=== PATIENT | male | born 2000 | race American Indian/Alaskan Native ===

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

== ENCOUNTER 2019-08-15 21:47 | Emergency (ER) | payer SELFPAY ==
[2019-08-15 21:54] VITALS: BP 138/77
--- NOTE | 2019-08-15 23:37 | XRay Report ---
CHEST 2 VIEWS INDICATION / CLINICAL INFORMATION: Chest pain for 3 days. COMPARISON: 02/12/17. FINDINGS: SUPPORT DEVICES: None. HEART / MEDIASTINUM: The heart size and pulmonary vasculature are normal. The aorta is normal in torrie yolanda. LUNGS / PLEURA: No significant pulmonary or pleural abnormality. No pneumothorax. ADDITIONAL FINDINGS: No significant additional findings. IMPRESSION: No acute abnormality or significant change. Signer Name: Dick Ortiz MD Signed: 08/15/2019 11:33 PM Workstation Name: [id number]
[2019-08-16] MEDS ORDERED: IPRATROPIUM/ALBUTEROL SULFATE 3 ML AMPUL.NEB IH ONE (02:17)
--- NOTE | 2019-08-16 02:24 | Emergency Department Report ---
HPI - General Chief Complaint: Chest Pain Time Seen by Provider: 08/16/19 02:16 - HPI HPI: This is a 18-year-old -[place] male presents to the emergency department with complaint of a 3-day history of some midsternal chest pain. He says that it worsens when he is trying to sleep at night. He denies any fever, cough, nausea, vomiting or diaphoresis. He denies any tobacco or illicit drug use. He has a past medical history of asthma. He has not taken anything for symptoms prior to presentation. No recent travel or sick contacts at home. No known exposure to anyone with Covid 19. ED Past Medical Hx - Past Medical History Previous Medical History?: Yes Hx Asthma: Yes Additional medical history: Back Pain - Surgical History Past Surgical History?: Yes Additional Surgical History: TONSILLECTOMY - Social History Smoking Status: Never Smoker Substance Use Type: None - Medications Home Medications: Home Medications Medication Instructions Recorded Confirmed Last Taken Type Naproxen [Naprosyn] 500 mg PO BID PRN #14 tablet 02/12/17 Unknown Rx Albuterol Mdi (or & Nicu Only) 2 puff IH QID PRN #8.5 gram 08/16/19 Unknown Rx [ProAir HFA Inhaler] ED Review of Systems ROS: Stated complaint: CHEST PAIN/HEADACHE Other details as noted in HPI Comment: All other systems reviewed and negative Constitutional: denies: chills, fever Eyes: denies: eye pain, vision change Respiratory: denies: cough, shortness of breath Cardiovascular: chest pain. denies: palpitations Gastrointestinal: denies: abdominal pain, vomiting Genitourinary: denies: dysuria Musculoskeletal: denies: back pain, arthralgia Neurological: denies: weakness, numbness Physical Exam - Physical Exam Vital Signs: Vital Signs 08/15/19 21:53 Temperature 98.9 F Pulse Rate 90 Respiratory 22 Rate Blood Pressure 138/77 O2 Sat by Pulse 97 Oximetry Physical Exam: GENERAL: The patient is well-developed well-nourished. HENT: Normocephalic. Atraumatic. Patient has moist mucous membranes. EYES: Extraocular motions are intact. NECK: Supple. Trachea is midline. CHEST/LUNGS: Clear to auscultation. There is no respiratory distress noted. HEART/CARDIOVASCULAR: Regular. There is no tachycardia. There is no murmur. ABDOMEN: Abdomen is soft, nontender. Patient has normal bowel sounds. SKIN: Skin is warm and dry. NEURO: The patient is awake, alert, and oriented. The patient is cooperative. Normal speech. MUSCULOSKELETAL: There is no tenderness or deformity. There is no evidence of acute injury. ED Course Vital Signs 08/15/19 21:53 Temperature 98.9 F Pulse Rate 90 Respiratory 22 Rate Blood Pressure 138/77 O2 Sat by Pulse 97 Oximetry ED Medical Decision Making - EKG Data -: EKG Interpreted by Me EKG shows normal: sinus rhythm, axis, intervals, QRS complexes, ST-T waves Rate: normal - EKG Data When compared to previous EKG there are: previous EKG unavailable Interpretation: normal EKG - Radiology Data Radiology results: image reviewed interpreted by me: Chest x-ray does not show any acute process. There are no pleural effusions, obvious pneumonia and there is no pneumothorax. - Medical Decision Making This patient presents to the emergency department with a complaint of some generalized chest tightness. On examination his heart and lung sounds are normal to auscultation. The patient does not appear in any respiratory or acute distress. An EKG was done that does not show any signs of ST elevation ME or dysrhythmia. Chest x-ray does not show any pneumonia, pleural effusions, pneumothorax, or any other acute process. Patient was given a breathing treatment and upon reevaluation says he is feeling improved. He will be discharged home with an albuterol inhaler and instructions to follow-up with primary care. Patient does not have any significant risk factors for coronary artery disease. He is also low on the Wells score criteria. Vital signs stable throughout his ED course including being afebrile. Critical Care Time: No Critical care attestation.: If time is entered above; I have spent that time in minutes in the direct care of this critically ill patient, excluding procedure time. ED Disposition Clinical Impression: Chest tightness Disposition: DC-01 TO HOME OR SELFCARE Is pt being admited?: No Condition: Stable Instructions: Chest Pain (ED) Additional Instructions: Please follow-up with a primary care physician in the next few days. Return to the emergency department with any worsening of your symptoms or any acute distress. Prescriptions: Albuterol Mdi (or & Nicu Only) [ProAir HFA Inhaler] 2 puff IH QID PRN #8.5 gram PRN Reason: Shortness Of Breath Referrals: PRIMARY CAREMD [Primary Care Provider] - 3-5 Days NEWTON MONTES MD [Staff Physician] - 3-5 Days [facility] [Provider Group] - 3-5 Days Forms: Work/School Release Form(ED) Time of Disposition: 02:48
== END 2019-08-16 02:50 | disposition home or self-care (01) ==
LOC: ED 21:47
DX: R07.89 Other chest pain (principal); J45.909 Unspecified asthma, uncomplicated
CPT/HCPCS: 71046; 93005; 99283

== ENCOUNTER 2019-11-21 16:21 | Emergency (ER) | payer MEDICAID ==
[2019-11-21 17:19] VITALS: BP 128/68
== END 2019-11-21 20:30 | disposition left against medical advice (07) ==
LOC: ED 16:21
DX: J34.89 Other specified disorders of nose and nasal sinuses (principal); R20.8 Other disturbances of skin sensation; Z53.21 Procedure and treatment not carried out due to patient leaving prior to being seen by health care provider

== ENCOUNTER 2021-03-11 20:23 | Emergency (ER) | payer MEDICAID, OTHER ==
[2021-03-11 20:47] VITALS: BP 142/86
--- NOTE | 2021-03-11 23:14 | Cat Scan Report ---
CT head/brain wo con INDICATION / CLINICAL INFORMATION: seizure. TECHNIQUE: Axial CT imaging of the brain was obtained without contrast. Coronal and sagittal reformatted imaging obtained and reviewed. All CT scans at this location are performed using CT dose reduction for ALAR A by means of automated exposure control. COMPARISON: None available. FINDINGS: No intracranial hemorrhage, mass, or midline shift noted. No extra-axial fluid collection or suggesti on of acute territorial infarction. The ventricular system and basilar cisterns are unremarkable. Visualized paranasal sinuses demonstrate a small mucous retention cyst in the left maxillary sinus. O therwise the sinuses are clear. Mastoid air cells are well aerated and clear. No calvarial abnormalit y. IMPRESSION: 1. No acute intracranial abnormality. 2. Incidental finding of small left maxillary antral mucous retention cyst. Signer Name: Gillian Whitney MD Signed: 03/11/2021 11:10 PM Workstation Name: [id number]
[2021-03-12] MEDS ORDERED: levETIRAcetam 500 MG TAB PO ONE (00:15)
[2021-03-12 00:51] LABS: Basophils # (Auto) 0.1 K/mm3 (0.0-0.1); Basophils % (Auto) 0.9 % (0.0-1.8); Eosinophils # (Auto) 0.2 K/mm3 (0.0-0.4); Eosinophils % (Auto) 2.2 % (0.0-4.3); Hematocrit 41.6 % (35.5-45.6); Lymphocytes # (Auto) 3.6 K/mm3 (1.2-5.4); Lymphocytes % (Auto) 45.3 % (13.4-35.0); Mean Corpuscular HGB Conc 31 % (32-34); Mean Corpuscular Volume 75 fl (84-94); Monocytes # (Auto) 0.4 K/mm3 (0.0-0.8); Monocytes % (Auto) 5.1 % (0.0-7.3); Platelet Count 262 K/mm3 (140-440); Red Blood Count 5.56 M/mm3 (3.65-5.03); Red Cell Distribution Width 14.9 % (13.2-15.2)
[2021-03-12 01:00] LABS: Alanine Aminotransferase 42 units/L (7-56); Albumin 4.5 g/dL (3.9-5); BUN/Creatinine Ratio 14; Blood Urea Nitrogen 13 mg/dL (9-20); Calcium 9.2 mg/dL (8.4-10.2); Hemolysis Index 20
--- NOTE | 2021-03-12 01:19 | Emergency Department Report ---
ED Seizure HPI - General Chief Complaint: Seizure Stated Complaint: PASSING OUT Source: patient Mode of arrival: Ambulatory Limitations: No Limitations - History of Present Illness Initial Comments: Patient is a 20-year-old -Turkish male with a history of asthma and chronic seizures and who is not on medication presents to the ED with complaint of intermittent seizures for the last 1 week, last time of which was 6 hours ago. Patient states that he has had seizures for "a long time" and that he has never taken any medications. Patient stated that he relocated from [facility] to [facility] about 4 months ago, and at the time he relocated he was scheduled to see a neurologist but could not follow-up with a local neurologist at the time in [place] because of his location. Patient states that since then he has been having intermittent seizures and he has never come to the hospital for evaluation. Patient denies dizziness, syncope, head or neck injuries, chest pain or shortness of breath, fever, chills, nausea and vomiting, syncope or abdominal pain, urinary or bowel incontinence. MD Complaint: seizure -: Sudden, week(s) (1) Description of Episode: loss of consciousness, tonic-clonic movement, post-event confusion Witnessed:: Yes Trauma: No Seizure History: known seizure disorder Place: home Possible Precipitating Event: none Associated Symptoms: denies other symptoms. denies: chest pain, confusion, cough, diaphoresis, fever/chills, loss of appetite, malaise, rash, syncope, weakness Treatments Prior to Arrival: none - Related Data Previous Rx's Medication Instructions Recorded Last Taken Type Naproxen [Naprosyn] 500 mg PO BID PRN #14 tablet 02/12/17 Unknown Rx Albuterol Mdi (or & Nicu Only) 2 puff IH QID PRN #8.5 gram 08/16/19 Unknown Rx [ProAir HFA Inhaler] levETIRAcetam [Keppra TAB] 1,000 mg PO BID #60 tab 03/12/21 Unknown Rx Allergies Allergy/AdvReac Type Severity Reaction Status Date / Time No Known Allergies Allergy Verified 02/12/17 11:12 ED Review of Systems ROS: Stated complaint: PASSING OUT Other details as noted in HPI Constitutional: denies: chills, fever Eyes: denies: eye pain, eye discharge, vision change ENT: denies: ear pain, throat pain Respiratory: denies: cough, shortness of breath, wheezing Cardiovascular: denies: chest pain, palpitations Endocrine: no symptoms reported Gastrointestinal: denies: abdominal pain, nausea, vomiting, diarrhea Genitourinary: denies: urgency, dysuria Musculoskeletal: denies: back pain, joint swelling, arthralgia Skin: denies: rash, lesions Neurological: other (Seizures). denies: headache, weakness, paresthesias Psychiatric: denies: anxiety, depression Hematological/Lymphatic: denies: easy bleeding, easy bruising ED Past Medical Hx - Past Medical History Previous Medical History?: Yes Hx Asthma: Yes Additional medical history: Back Pain - Surgical History Past Surgical History?: Yes Additional Surgical History: TONSILLECTOMY - Social History Smoking Status: Never Smoker - Medications Home Medications: Home Medications Medication Instructions Recorded Confirmed Last Taken Type Naproxen [Naprosyn] 500 mg PO BID PRN #14 tablet 02/12/17 Unknown Rx Albuterol Mdi (or & Nicu Only) 2 puff IH QID PRN #8.5 gram 08/16/19 Unknown Rx [ProAir HFA Inhaler] levETIRAcetam [Keppra TAB] 1,000 mg PO BID #60 tab 03/12/21 Unknown Rx ED Physical Exam - General Limitations: No Limitations General appearance: alert, in no apparent distress - Head Head exam: Present: atraumatic, normocephalic, normal inspection - Eye Eye exam: Present: normal appearance, PERRL, EOMI Pupils: Present: normal accommodation - ENT ENT exam: Present: normal exam, normal orophraynx, mucous membranes moist, TM's normal bilaterally, normal external ear exam - Neck Neck exam: Present: normal inspection, full ROM - Respiratory Respiratory exam: Present: normal lung sounds bilaterally. Absent: respiratory distress, wheezes, rales, rhonchi, chest wall tenderness, accessory muscle use, decreased breath sounds, prolonged expiratory - Cardiovascular Cardiovascular Exam: Present: regular rate, normal rhythm, normal heart sounds. Absent: systolic murmur, diastolic murmur, rubs, gallop - GI/Abdominal GI/Abdominal exam: Present: soft, normal bowel sounds. Absent: tenderness, guarding, rebound, hyperactive bowel sounds, organomegaly, mass - Extremities Exam Extremities exam: Present: normal inspection, full ROM, normal capillary refill - Back Exam Back exam: Present: normal inspection, full ROM. Absent: tenderness, CVA tenderness (R), CVA tenderness (L), muscle spasm, vertebral tenderness - Neurological Exam Neurological exam: Present: alert, oriented X3, CN II-XII intact, normal gait, reflexes normal - Psychiatric Psychiatric exam: Present: normal affect, normal mood - Skin Skin exam: Present: warm, dry, intact, normal color. Absent: rash ED Course Vital Signs 03/11/21 20:43 Temperature 97.8 F Pulse Rate 94 H Respiratory 18 Rate Blood Pressure 142/86 O2 Sat by Pulse 98 Oximetry ED Medical Decision Making - Lab Data Result diagrams: 03/12/21 00:23 03/12/21 00:23 - Radiology Data [facility] [address] [place] [address] Cat Scan Report Signed Patient: DOROTHY PRADHAN JR MR#: [id number] : 2000 Acct:[id number] Age/Sex: 20 / M ADM Date: 03/11/21 Loc: ED Attending Dr: Ordering Physician: PINA DUMONT MD Date of Service: 03/11/21 Procedure(s): CT head/brain wo con Accession Number(s): [id number] cc: PINA DUMONT MD CT head/brain wo con INDICATION / CLINICAL INFORMATION: seizure. TECHNIQUE: Axial CT imaging of the brain was obtained without contrast. Coronal and sagittal reformatted imaging obtained and reviewed. All CT scans at this location are performed using CT dose reduction for ALARA by means of automated exposure control. COMPARISON: None available. FINDINGS: No intracranial hemorrhage, mass, or midline shift noted. No extra-axial fluid collection or suggestion of acute territorial infarction. The ventricular system and basilar cisterns are unremarkable. Visualized paranasal sinuses demonstrate a small mucous retention cyst in the left maxillary sinus. Otherwise the sinuses are clear. Mastoid air cells are well aerated and clear. No calvarial abnormality. IMPRESSION: 1. No acute intracranial abnormality. 2. Incidental finding of small left maxillary antral mucous retention cyst. Signer Name: Gillian Whitney MD Signed: 03/11/2021 11:10 PM Workstation Name: [id number] Transcribed By: Dictated By: Gillian Whitney MD Electronically Authenticated By: Gillian Whitney MD Signed Date/Time: 03/11/212309 DD/ 06 TD/TT: Print - Medical Decision Making This is a 20-year-old -Turkish male with a history of asthma and chronic seizures and who is not on medication presents to the ED with complaint of intermittent seizures for the last 1 week, last time of which was 6 hours ago. Patient states that he has had seizures for "a long time" and that he has never taken any medications. Patient stated that he relocated from [facility] to [facility] about 4 months ago, and at the time he relocated he was scheduled to see a neurologist but could not follow-up with a local neurologist at the time in [place] because of his location. Patient states that since then he has been having intermittent seizures and he has never come to the hospital for evaluation. In the ED, patient is alert and oriented x3 and is not in any distress. Lab test results were reviewed and are all nonactionable. Head CT scan without contrast showed no acute intracranial abnormalities or hemorrhage. Patient was treated in the ED for seizures with Keppra 1 g p.o. x1. On reevaluation, patient has not had any seizures while in the ED. Patient will discharge home on medications, Keppra 1 g twice a day and was given a referral to a neurologist Dr. Mathew Coley for follow-up. Patient was advised to contact Dr. Feliciano's office in the next 3 to 5 days for follow-up and for further evaluation. Patient was otherwise advised return to the ED immediately if symptoms get worse. - Differential Diagnosis seizure; syncope; dehydration Critical care attestation.: If time is entered above; I have spent that time in minutes in the direct care of this critically ill patient, excluding procedure time. ED Disposition Clinical Impression: Seizure disorder Disposition: 01 HOME / SELF CARE / HOMELESS Is pt being admited?: No Does the pt Need Aspirin: No Condition: Stable Instructions: Seizure, Adult, [id number], Epilepsy, [id number] Additional Instructions: All lab test results were reviewed and are all nonactionable. Head CT scan without contrast showed no acute intracranial abnormalities or hemorrhage. Therefore take medications for seizures as advised, follow-up with a neurologist Dr. Feliciano as advised. Contact his office in the next 2 to 3 days to schedule a follow-up appointment. Return to the ED immediately if symptoms get worse. Prescriptions: levETIRAcetam [Keppra TAB] 1,000 mg PO BID #60 tab Referrals: CARLO FELICIANO MD [Staff Physician] - 3-5 Days [facility] [Provider Group] - 7-10 days Time of Disposition: 01:19 Print Language: CHILEAN
== END 2021-03-12 01:45 | disposition home or self-care (01) ==
LOC: ED 20:23
DX: G40.909 Epilepsy, unspecified, not intractable, without status epilepticus (principal); J45.909 Unspecified asthma, uncomplicated
CPT/HCPCS: 36415; 70450; 80053; 84443; 85025; 99284

== ENCOUNTER 2021-10-06 08:41 | Emergency (ER) | payer MEDICAID, OTHER ==
[2021-10-06 09:28] VITALS: BP 148/83
--- NOTE | 2021-10-08 13:23 | Electrocardiograph Report ---
[facility] Test Date: 2021-10-06 Test Time: 09:38:18 Pat Name: DOROTHY PRADHAN Department: Room: Gender: M Scanning Clerk: FLACO : 2000 Requested By: BRY GAMINO Order Number: [id number] Reading MD: Yazmin Grajeda Measurements Intervals [place] Rate: 95 P: 77 OK: 135 QRS: 35 QRSD: 77 T: 34 QT: 358 QTc: 450 Interpretive Statements Sinus rhythm No previous ECG available for comparison Electronically Signed On 10-08-2021 13:22:57 EDT by Yazmin Grajeda
== END 2021-10-07 07:44 | disposition left against medical advice (07) ==
LOC: ED 08:41
DX: R07.9 Chest pain, unspecified (principal); Z53.21 Procedure and treatment not carried out due to patient leaving prior to being seen by health care provider
CPT/HCPCS: 93005